=== PATIENT | male | born 1955 | race Caucasian/White ===

== ENCOUNTER 2017-05-15 07:25 | Emergency (ER) | payer BC, OTHER ==
[~2017-05-15] VITALS: Ht 177.8 cm; Wt 81.7 kg
[2017-05-15] MEDS ORDERED: MAGNESIUM500 MG PO (07:38)
[2017-05-15] MEDS ORDERED: BENADRYL25 MG PO (07:38)
[2017-05-15] MEDS ORDERED: VALIUM5 MG PO ×2 (07:39→08:43)
[2017-05-15 09:04] VITALS: BP 155/84
== END 2017-05-15 09:06 | disposition home or self-care (01) ==
LOC: ER 07:25
DX: R42 Dizziness and giddiness (principal)